=== PATIENT | male | born 1980 | race Two or more races ===

== ENCOUNTER 2016-09-23 03:13 | Emergency (ER) | payer SELFPAY ==
[~2016-09-23] VITALS: Ht 160 cm; Wt 63.5 kg
--- NOTE | 2016-09-23 04:15 | Emergency Room Report ---
History of Present Illness General Chief Complaint: Alcohol Intoxication Source: EMS Present Illness HPI This is a 36-year-old male brought in by EMS for alcohol intoxication. He was found intoxicated and bystander called 911. Unable to get history from him because of his intoxication. No trauma. Allergies: Coded Allergies: UNABLE TO ASSESS (Unverified , 09/23/16) Patient History Past Medical History: see triage record, old chart reviewed Past Surgical History: unable to obtain Pertinent Family History: unable to obtain Social History: Reports: alcohol use Immunizations: other Reviewed Nursing Documentation: PMH: Agreed, PSxH: Agreed Nursing Documentation-PMH Past Medical History Deferred: Pt Cognitively Impaired Review of Systems All Other Systems: limited - Secondary to intoxication Physical Exam Vital Signs Date Time Temp Pulse Resp B/P Pulse Ox O2 Delivery O2 Flow Rate FiO2 09/23/16 03:13 98.1 95 18 115/72 97 Room Air vitals normal Sp02 EP Interpretation: reviewed, normal General Appearance: well appearing, no apparent distress, other - Very intoxicated Head: normocephalic, atraumatic Eyes: bilateral eye EOMI, bilateral eye PERRL ENT: hearing grossly normal, normal pharynx Neck: full range of motion, supple, no meningismus Respiratory: chest non-tender, lungs clear, normal breath sounds Cardiovascular #1: regular rate, rhythm, no murmur Gastrointestinal: normal bowel sounds, non tender, no mass, no organomegaly, no bruit, non-distended Musculoskeletal: back normal, normal range of motion Neurologic: grossly normal Skin: warm/dry Medical Decision Making Diagnostic Impression: Primary Impression: Acute alcoholic intoxication Qualified Codes: F10.120 - Alcohol abuse with intoxication, uncomplicated ER Course Patient presents with alcohol intoxication. No trauma. No head injury to warrant CT scan. We'll observe until clinical sobriety and discharge in the morning. Last Vital Signs Date Time Temp Pulse Resp B/P Pulse Ox O2 Delivery O2 Flow Rate FiO2 09/23/16 03:13 98.1 95 18 115/72 97 Room Air Status: improved Disposition: HOME, SELF-CARE Condition: Stable Referrals: NOT CHOSEN IPA/,REFERRING (PCP) Patient Instructions: Alcohol Intoxication, [id number] Additional Instructions: Followup your Dr. in 2-3 days. Stop drinking. Go to rehabilitation. Return if worse. ARMAND FINE M.D. Sep 23, 2016 04:15
[2016-09-23 05:06] VITALS: BP 123/70
[2016-09-23 07:04] VITALS: BP 118/65
[2016-09-23 08:59] VITALS: BP 117/71
[2016-09-23 09:05] VITALS: BP 117/71
== END 2016-09-23 09:07 | disposition home or self-care (01) ==
LOC: EDBD 03:13 → EMR 03:45
DX: F10.129 Alcohol abuse with intoxication, unspecified (principal)
CPT/HCPCS: 99284